=== PATIENT | male | born 1955 | race Caucasian/White ===

== ENCOUNTER → 2016-06-21 | Outpatient (CLI) | payer BC ==
--- NOTE | ~2016-06-21 | ENPV ---
Vascular Lower Extremities DVT Study Procedure Demographics Patient Name VENKATESH ROY Date of Study 06/21/2016 Patient Number [id number] Gender Male Date of 1955 Age 60 Visit Number [id number] Height Weight Number Room Number BSA BMI Referring Shane Kendall MD Interpreting Flynn Kendall MD Physician Physician Physician Ordering Shane Kendall [employer] Member Physician Dog Obedience Instructor Kalpana Wilson, RT,RVT,RDCS Kwame Hutchins Conclusions Summary No evidence of deep vein thrombosis or superficial thrombophlebitis in the left lower extremity . Procedure Type of Study: Veins:Lower Extremities DVT Study, Lower Extremity Left. Indications for Study:Swelling of Limb and Pain in Limb. Patient Status:Routine. Study Location:[facility]ascular Lab. Technical Quality:Adequate visualization. - Preliminary reported to:Brittany STILL . Velocities are measured in cm/s ; Diameters are measured in cm Right Lower Extremities DVT Study Measurements Right 2D and Doppler Measurements + + + + +------+------+ + !Location !Visualized!Compressibility!Thrombosis!Signal!Reflux!Reflux ! ! ! ! ! ! ! !(sec) ! + + + + +------+------+ + !GSV Thigh !Yes !Yes !None !Phasic!No ! ! + + + + +------+------+ + !Common !Yes !Yes !None !Phasic!No ! ! !Femoral ! ! ! ! ! ! ! + + + + +------+------+ + Left Lower Extremities DVT Study Measurements Left 2D and Doppler Measurements + + + + +------+------+ + !Location !Visualized!Compressibility!Thrombosis!Signal!Reflux!Reflux ! ! ! ! ! ! ! !(sec) ! + + + + +------+------+ + !GSV Thigh !Yes !Yes !None !Phasic!No ! ! + + + + +------+------+ + !Common !Yes !Yes !None !Phasic!No ! ! !Femoral ! ! ! ! ! ! ! + + + + +------+------+ + !Prox !Yes !Yes !None !Phasic!No ! ! !Femoral ! ! ! ! ! ! ! + + + + +------+------+ + !Mid Femoral!Yes !Yes !None !Phasic!No ! ! + + + + +------+------+ + !Dist !Yes !Yes !None !Phasic!No ! ! !Femoral ! ! ! ! ! ! ! + + + + +------+------+ + !Popliteal !Yes !Yes !None !Phasic!No ! ! + + + + +------+------+ + !Gastroc !Yes !Yes !None !Phasic!No ! ! + + + + +------+------+ + !PTV !Yes !Yes !None !Phasic!No ! ! + + + + +------+------+ + !Peroneal !Yes !Yes !None !Phasic!No ! ! + + + + +------+------+ + Signature dtt: Calvin Pruett: 06/21/16 1026 Physician Self Edit
== END | disposition disaster alternative care site (69) ==
LOC: GCAR 10:13
DX: M79.662 Pain in left lower leg (principal); M79.89 Other specified soft tissue disorders